=== PATIENT | male | born 1950 | race Caucasian/White ===

== ENCOUNTER → 2016-08-03 | Outpatient (CLI) | payer OTHER ==
[~2016-08-03] MED LIST: IOPAMIDOL (ISOVUE-300) 100 ML BTL IV ONE
== END ==
LOC: FIMAGING 10:47
PROVIDERS: ATTEND Internal Medicine Gastroenterology
DX: C15.9 Malignant neoplasm of esophagus, unspecified (principal); R93.8 Abnormal findings on diagnostic imaging of other specified body structures; N28.89 Other specified disorders of kidney and ureter; N20.1 Calculus of ureter
CPT/HCPCS: 71260; 74177; Q9967

== ENCOUNTER 2016-08-08 07:40 | Day surgery (SDC) | payer OTHER ==
[2016-08-08] MEDS ORDERED: LIDOCAINE 1% 2 ML INJ ONE (08:01)
[2016-08-08] MEDS ORDERED: PROPOFOL 200 MG/20 ML VIAL ONE (08:30)
[2016-08-08] MEDS ORDERED: LIDOCAINE 2% 5 ML SDV ONE (08:30)
[2016-08-08] MEDS ORDERED: LR 1,000 ML IV ONE (08:42)
[2016-08-08] MEDS ORDERED: fentaNYL 100 MCG/2 ML INJ ONE (08:49)
[2016-08-08] MEDS ORDERED: SUCCINYLCHOLINE CHLORIDE*ANESTHESIA ONLY*200 MG/10 ML SYR IVP ONE (08:50)
[2016-08-08] MEDS ORDERED: PROPOFOL/EMULSION 500 MG/50 ML BOTTLE IV ONE (08:51)
[2016-08-08] MEDS ORDERED: LABETALOL HCL 5 MG/ML 20 ML MDV ONE (09:20)
[2016-08-08] MEDS ORDERED: LABETALOL HCL 50 MG/10 ML SYR ONE (09:53)
--- NOTE | 2016-08-08 11:22 | GPN ---
[f rep st] PROCEDURE NOTE PREPROCEDURE DIAGNOSIS: Esophageal cancer. POSTPROCEDURE DIAGNOSIS: Esophageal cancer. PROCEDURE: Endoscopic ultrasound of the esophagus. MEDICATIONS: Monitored anesthesia care. INDICATIONS: The patient is a 65-year-old gentleman with a history of recently diagnosed esophageal cancer by Dr. Herndon. He is here today for endoscopic ultrasound staging. The risks and the benefi ts of the procedure were discussed with the patient and consent obtained. The risks include, but no t limited to, bleeding, perforation, and risks related to sedation. The patient is ASA class 2. PROCEDURE IN DETAIL: The end-viewing endoscope was inserted into the esophagus, into the stomach, a nd the second portion of the duodenum. 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 At 35 cm from the incisors, the mucosa was more nodular and ulcerated, consistent with his known esophageal cancer, which extends to 41 cm from the incisors. The GE junction is located a t 41 cm from the incisors. He has a small hiatal hernia. The stomach is otherwise normal. The duo denum in the second portion is normal. The radial echoendoscope was inserted into the esophagus, to the proximal extent of the nodular port ion of his esophagus, which is consistent with his cancer. Secondary to narrowing of the esophageal lumen, the radial echoendoscope could not be advanced into the stomach. From the proximal view of the tumor, there is extension through the muscularis propria layer into the adventitia, indicating a T3 lesion. He has a collection of lymph nodes located at 32 cm from the incisors. The largest lym ph node at this site measures 11.5 x 6.9 mm. These lymph nodes are oval and hypoechoic in shape, wh ich may represent tumor involvement versus inflammatory lymph nodes. IMPRESSION: Esophageal malignancy extending from 35 cm to 41 cm in the esophagus. The tumor extend s 0.5 cm across the GE junction, as visualized on retroflexed views from within the stomach. The st aging is T3 N0 versus N1 MX. RECOMMENDATIONS: 1. Continue high-dose acid suppression therapy and Carafate as directed by Dr. Herndon. 2. Follow up with [facility] to discuss treatment. He will need neoadjuvant ch emoradiation prior to surgical resection based on his EUS staging. 3. Correlate esophageal lymph nodes with a possible PET scan and CT scan. Thank you for allowing me to participate in the care of your patient. Please do hesitate to call wi th questions. /[id number]/MODL
== END 2016-08-08 11:05 | disposition home or self-care (01) ==
LOC: FSGY 07:40
PROVIDERS: ATTEND Internal Medicine Gastroenterology
PROC: 0DJ08ZZ Inspection of Upper Intestinal Tract, Via Natural or Artificial Opening Endoscopic (ICD-10-PCS; principal; 2016-08-08 09:00)
DX: R13.10 Dysphagia, unspecified (principal); C15.8 Malignant neoplasm of overlapping sites of esophagus; I10 Essential (primary) hypertension
CPT/HCPCS: J0330; J2704; J3010; J3490

== ENCOUNTER → 2017-06-09 | Outpatient (CLI) | payer OTHER | PROVIDERS: ATTEND Radiology Radiation Oncology | DX: R13.10 Dysphagia, unspecified (principal); K22.2 Esophageal obstruction; Z98.890 Other specified postprocedural states | CPT/HCPCS: 74230; 92611; G8996; G8997; G8998 ==

== ENCOUNTER 2018-10-06 16:17 | Observation (INO) | payer OTHER | END 2018-10-07 16:45 | disposition home or self-care (01) | LOC: F1N 19:32 ==